=== PATIENT | male | born 1955 | race Caucasian/White ===

== ENCOUNTER 2016-09-12 13:29 | Emergency (ER) | payer OTHER ==
--- NOTE | 2016-09-12 13:42 | PDOC ---
History of Present Illness - General Chief Complaint: Seizure Stated Complaint: SIZURE Time Seen by Provider: 09/12/16 13:42 History Source: Patient Exam Limitations: No Limitations - History of Present Illness Initial Comments: 09/12/16 13:42 CHIEF COMPLAINT: Seizure PCP: Dr. Montes HISTORY OF PRESENT ILLNESS: Patient is a 61 [id number] was brought in via EMS after he developed seizure. A/c to the patient, he was with a patient, standing in position when he felt weak and started having generalized tonic clonic seizure. Nurse witnessed the seizure and told him he had a GTCS, the duration of seizure is unknown, there was no tongue bite, no urinary or stool incontinence, no fall, no trauma to the head. He felt nauseous after he gained consciouness. Post seizure he denies headache, dizziness, chest pain, sob, cough, palpitation, abdominal pain or vomiting. Patient mentions he was diagnosed and treated for Meningioma in 2006 and since Nov, 2007 he started having seizure. He is on Lamotrigine 500mg Daily and is compliant. He took the medication this morning. The last seizure was several months ago. Patient mentions he had an MRI of brain 3 days ago and there was no re-growth of meningioma. Bowel/Bladder habit normal. Sleep/Appetite normal. Recent Travel: None PAST MEDICAL HISTORY: Meningioma (diagnosed in 2006) s/p surgery; Seizure post brain surgery PAST SURGICAL HISTORY: As mentioned above Social History: Smoking: Denies Alcohol: Denies Drugs: Denies Family History:Unknown Allergies: NKDA Past History - Past Medical History Allergies/Adverse Reactions: Allergies Allergy/AdvReac Type Severity Reaction Status Date / Time No Known Allergies Allergy Verified 09/12/16 13:56 Review of Systems - Review of Systems Able to Perform ROS?: Yes Comments:: 09/12/16 15:30 CONSTITUTIONAL:~ Absent: fever, chills, diaphoresis, generalized weakness, malaise, loss of appetite HEENT:~ Absent: rhinorrhea, nasal congestion, throat pain, throat swelling, difficulty swallowing, mouth swelling, ear pain, eye pain, visual Changes CARDIOVASCULAR:~ Absent: chest pain, syncope, palpitations, irregular heart rate, lightheadedness , peripheral edema RESPIRATORY:~ Absent: cough, shortness of breath, dyspnea with exertion, orthopnea, wheezing, stridor, hemoptysis GASTROINTESTINAL: Absent: abdominal pain, abdominal distension, nausea, vomiting, diarrhea, constipation, melena, hematochezia GENITOURINARY:~ Absent: dysuria, frequency, urgency, hesitancy, hematuria, flank pain, genital pain MUSCULOSKELETAL:~ Absent: myalgia, arthralgia, joint swelling SKIN:~ Absent: rash, itching, pallor HEMATOLOGIC/IMMUNOLOGIC:~ Absent: easy bleeding, easy bruising, lymphadenopathy, frequent infections ENDOCRINE: Absent: unexplained weight gain, unexplained weight loss, heat intolerance, cold intolerance NEUROLOGIC: Present: seizure Absent: headache, focal weakness or paresthesias, dizziness, unsteady gait, mental status changes, bladder or bowel incontinence PSYCHIATRIC:~ Absent: anxiety, depression, suicidal or homicidal ideation, hallucinations. Is the patient limited Honduran proficient: No *Physical Exam - Physical Exam Comments: 09/12/16 15:31 PE: GENERAL: Awake, alert, and fully oriented, in no acute distress HEAD: No signs of trauma, linear abrasion due to scratch from glasses, surgical scar brandie in the right parietal area. EYES: PERRLA, EOMI, sclera anicteric, conjunctiva clear ENT: Auricles normal inspection, hearing grossly normal, nares patent, oropharynx clear without exudates. Moist mucosa NECK: Normal ROM, supple, no lymphadenopathy, JVD, or masses LUNGS: Breath sounds equal, clear to auscultation bilaterally. No wheezes, and no crackles.. HEART: Regular rate and rhythm, normal S1 and S2, no murmurs, rubs or gallops ABDOMEN: Soft, nontender, normoactive bowel sounds. No guarding, no rebound. No masses EXTREMITIES: Normal range of motion, no edema. No clubbing or cyanosis. No cords, erythema, or tenderness NEUROLOGICAL: Cranial nerves II through XII grossly intact. Normal speech, normal gait SKIN: Warm, Dry, normal turgor, no rashes or lesions noted. ED Treatment Course - LABORATORY CBC & Chemistry Diagram: 09/12/16 15:00 09/12/16 15:00 Medical Decision Making - Medical Decision Making 09/12/16 14:20 Patient seen and examined at bed side. Vitals noted, unremarkable. Patient looks comfortable. No complaints. No seizure activity on arrival or en route. Was given Zofran en route Will order routine labs, UA No medication given at this time. 09/12/16 14:[address] Montes over the phone. As per his recommendation, will call Dr. De La Fuente Called placed to Dr. De La Fuente -cell no) patients neurologist at [facility]. As per his recommendations, patient was given Lamotrigine 200mg PO stat and get the Lamotrigine level. 09/12/16 16:23 Labs noted, WNL. Clinical Impression: Seizure unknown etiology Patient has been compliant with the medication. Spoke with Dr. Montes and the patient, will discharge him. at bedside. Patient has been advised to follow up with Dr. Montes and Dr. De La Fuente as soon as possible and to return to the Emergency Department if any NEW symptoms develop. Illness, Investigation and Plan of care explained to the patient. He verbalized understanding. Case seen and discussed with Dr. Carlson. *DC/Admit/Observation/Transfer Diagnosis at time of Disposition: Seizure - Discharge Dispostion Disposition: HOME Condition at time of disposition: Guarded Admit: No - Referrals Referrals: Pascual Ballesteros MD [Primary Care Provider] - - Patient Instructions Printed Discharge Instructions: Seizure Disorder -- Adult Additional Instructions: Your blood work shows marginal elevation of WBC count, 11.2, rest blood work is unremarkable. Lamotrigine level is pending. If you would like to know the level , please call the Emergency Department. I spoke with Dr. Montes and Dr. De La Fuente and they are well aware of the plan to discharge you. Please make sure you make an appointment with both of the doctors as soon as possible. Return to the Emergency Department if you develop seizure or if any NEW symptoms develop.
[2016-09-12 14:17] VITALS: BP 120/71; PULSE 82; TEMP 97.2; BMI 22.4
--- NOTE | 2016-09-12 14:46 | PDOC ---
Attending Attestation - Resident Resident Name: Octavia Michael - ED Attending Attestation I have performed the following: I have examined & evaluated the patient, The case was reviewed & discussed with the resident, I agree w/resident's findings & plan, Exceptions are as noted - HPI HPI: 09/12/16 14:44 Agree with the resident's HPI as documented in the electronic medical record. - Physicial Exam PE: 09/12/16 14:44 Agree with the resident's physical examination as documented in the electronic medical record. - Medical Decision Making 09/12/16 14:44 61-year-old male with history of meningioma status post resection in 2017 and subsequent seizure disorderon limitpresents to the emergency department following a witnessed generalized tonic-clonic seizure just prior to arrival with tongue biting. There was no loss of urinary or fecal continence and no trauma to the head or other areas of his body. Differential diagnosis includes but is not limited to: Subtherapeutic AED level, electrolyte abnormality, breakthrough seizure, toxic/metabolic derangement. Plan: 1. Labs 2. Urine 3. Observe and reevaluate
[2016-09-12 15:15] LABS: BASOPHIL 0.4 % (0-2.0); EOSINOPHIL 0.1 % (0-4.5); MCH 31.3 pg (25.7-33.7); MCHC 33.6 g/dl (32.0-35.9); MEAN CELL VOLUME 93.2 fl (80-96); NEUTROPHILS 84.5 % (42.8-82.8); PLATELET COUNT 194 K/MM3 (134-434); RDW 13.3 % (11.9-15.9); WHITE BLOOD COUNT 11.2 K/mm3 (4.0-10.0)
[2016-09-12 15:21] LABS: URINE APPEARANCE CLEAR; URINE BILIRUBIN NEGATIVE (NEGATIVE); URINE BLOOD NEGATIVE (NEGATIVE); URINE COLOR YELLOW; URINE GLUCOSE (UA) NEGATIVE (NEGATIVE); URINE KETONE NEGATIVE (NEGATIVE); URINE LEUK ESTERASE NEGATIVE (NEGATIVE); URINE NITRITE NEGATIVE (NEGATIVE); URINE UROBILINOGEN NEGATIVE E.U./dl (0.2-1.0)
[2016-09-12 15:29] LABS: INR 1.14 (0.82-1.09); PROTHROMBIN TIME (PATIENT) 12.6 SEC (9.98-11.88)
[2016-09-12 15:36] LABS: ALBUMIN 3.9 g/dl (3.4-5.0); ALK PHOS 79 U/L (45-117); ANION GAP 12 (8-16); BILIRUBIN,TOTAL 0.2 mg/dL (0.2-1.0); CALCIUM 8.3 mg/dL (8.5-10.1); CO2 26 mmol/L (21-32); GLUCOSE,RANDOM 122 mg/dL (74-106); SGOT/AST 21 U/L (15-37); SGPT/ALT 34 U/L (12-78); TOT PROT 6.5 g/dl (6.4-8.2)
[2016-09-12 15:40] LABS: URINE PROTEIN 1+ (NEGATIVE)
[2016-09-12 15:54] LABS: URINE HYALINE CAST 26 /lpf; URINE MUCUS RARE; URINE RBC <1 /hpf (0-3); URINE WBC 1 /hpf (3-5)
== END 2016-09-12 16:46 | disposition home or self-care (01) ==
LOC: JER 13:29
DX: G40.909 Epilepsy, unspecified, not intractable, without status epilepticus (principal)
CPT/HCPCS: 36415; 80053; 80175; 81003; 81015; 85025; 85610; 99283-25

== ENCOUNTER 2017-06-21 07:26 | Day surgery (SDC) | payer OTHER ==
[2017-06-19 18:02] VITALS: BMI 27.4
[2017-06-21] MEDS ORDERED: PROPOFOL 20 ML ONE ×2 (08:23)
[2017-06-21] MEDS ORDERED: LIDOCAINE HCL/PF 2% SDV 5ML VIAL ONE (08:23)
[2017-06-21 09:04] VITALS: TEMP 97.3
[2017-06-21 09:45] VITALS: BP 131/78; PULSE 58
--- NOTE | 2017-06-22 13:24 | PATH ---
Surgical Pathology Report Patient Name: PELON BELL [facility]. Rec. #: [id number] /Age/Gender: 1955 (Age: 62) / M Account: [id number] Location: Taken: 06/21/2017 Received: 06/21/2017 Reported: 06/22/2017 Physicians: Anibal Welch M.D. Specimen(s) Received A: POLYP HEPATIC FLEXURE B: BX RECTUM POLYP Clinical History Preoperative diagnosis: Screening Postoperative diagnosis: Diverticulosis, colon polyps Final Diagnosis A. COLON, HEPATIC FLEXURE, BIOPSY: COLONIC MUCOSA WITH NO PATHOLOGIC CHANGES. NO ACTIVE COLITIS, ARCHITECTURAL DISTORTION, GRANULOMATA, OR DYSPLASIA IDENTIFIED. NO MICROSCOPIC COLITIS IDENTIFIED (NO LYMPHOCYTIC OR COLLAGENOUS COLITIS IDENTIFIED). B. COLON, RECTUM, POLYPECTOMY: TUBULAR ADENOMA. Comment: Recommend correlation with clinical findings and follow up as clinically indicated. Electronically Signed Hudson Galicia M.D. Gross Description A. Received in formalin, labeled "polyp hepatic flexure" are 2 ramon, irregular portions of soft tissue measuring 0.2 and 0.3 cm. in greatest dimension. The specimens are submitted in toto in one cassette. B. Received in formalin, labeled "biopsy rectum polyp" are 2 ramon, irregular portions of soft tissue measuring 0.2 and 0.4 cm. in greatest dimension. The specimens are submitted in toto in one cassette. 06/21/201706/21/2017
== END 2017-06-21 09:46 | disposition home or self-care (01) ==
LOC: FASU-ENDO 07:26
PROVIDERS: ATTEND Internal Medicine Gastroenterology
PROC: 0DBP8ZX Excision of Rectum, Via Natural or Artificial Opening Endoscopic, Diagnostic (ICD-10-PCS; 2017-06-21)
PROC: 0DBL8ZX Excision of Transverse Colon, Via Natural or Artificial Opening Endoscopic, Diagnostic (ICD-10-PCS; principal; 2017-06-21 08:00)
DX: Z12.11 Encounter for screening for malignant neoplasm of colon (principal); D12.8 Benign neoplasm of rectum; D12.2 Benign neoplasm of ascending colon; K57.30 Diverticulosis of large intestine without perforation or abscess without bleeding
CPT/HCPCS: 88305-TC

== ENCOUNTER 2018-12-27 16:25 | Emergency (ER) | payer OTHER ==
[2018-12-27] MEDS ORDERED: ASPIRIN 81 MG CHEWABLE TABLETS PO ONE (17:01)
--- NOTE | 2018-12-27 17:05 | PDOC ---
History of Present Illness - General Chief Complaint: Palpitations Stated Complaint: PALPITATIONS Time Seen by Provider: 12/27/18 16:51 - History of Present Illness Initial Comments: 12/27/18 18:13 63m with pmh of seizures and SVT, scheduled for ablation yesterday that was cancelled due to MD emergency, presents to the ED for palpitations. Sent by Dr. Oliver for evaluation. He denies chest pain, difficulty breathing, n/v/d, headache, back pain, dizziness. Patient had stopped taking is Toprol for the past few days before his expected surgery. Resumed it this morning. Has used a Holter monitor many times in the past, last time chris-tiera was briefly seen. 12/27/18 19:23 Past History - Past Medical History Allergies/Adverse Reactions: Allergies Allergy/AdvReac Type Severity Reaction Status Date / Time No Known Allergies Allergy Verified 06/19/17 17:58 Home Medications: Ambulatory Orders Lamotrigine [Lamotrigine Odt] 400 mg PO BID 06/19/17 Metoprolol Succinate [Toprol Xl] 50 mg PO BID 12/27/18 Rosuvastatin Calcium [Crestor] 5 mg PO DAILY 12/27/18 Anemia: No Asthma: No Cancer: No (meningioma 2006) Cardiac Disorders: No CVA: No COPD: No CHF: No Dementia: No GI Disorders: No Disorders: No HTN: No Hypercholesterolemia: No Liver Disease: No Seizures: Yes (LAST SEIZURE 3 YEARS AGO) Thyroid Disease: No - Surgical History Abdominal Surgery: No Appendectomy: No Cardiac Surgery: No Cholecystectomy: No Lung Surgery: No Neurologic Surgery: Yes (2006 REMOVAL OF MENINGIOMA) Orthopedic Surgery: No - Suicide/Smoking/Psychosocial Hx Smoking History: Never smoked Have you smoked in the past 12 months: No Hx Alcohol Use: No Drug/Substance Use Hx: No Substance Use Type: None Hx Substance Use Treatment: No Cardiac Specific PMH - Complaint Specific PMHX Pacemaker: No Review of Systems - Review of Systems Able to Perform ROS?: Yes Is the patient limited Gambian proficient: No Constitutional: No: Symptoms Reported HEENTM: No: Symptoms Reported Respiratory: No: Symptoms reported Cardiac (ROS): Yes: See HPI ABD/GI: No: Symptoms Reported : No: Symptoms Reported Musculoskeletal: No: Symptoms Reported Integumentary: No: Symptoms Reported Neurological: No: Symptoms reported *Physical Exam - Vital Signs Last Vital Signs Temp Pulse Resp BP Pulse Ox 98.3 F 60 16 125/80 100 12/27/18 16:50 12/27/18 18:44 12/27/18 18:44 12/27/18 18:44 12/27/18 18:44 - Physical Exam General Appearance: Yes: Nourished, Appropriately Dressed. No: Apparent Distress HEENT: positive: EOMI, KIM, Normal ENT Inspection Respiratory/Chest: positive: Lungs Clear, Normal Breath Sounds. negative: Chest Tender, Respiratory Distress Cardiovascular: positive: Tachycardia, Irregularly Irregular Gastrointestinal/Abdominal: positive: Normal Bowel Sounds, Flat, Soft Rectal Exam: positive: normal rectal tone Musculoskeletal: positive: Normal Inspection. negative: CVA Tenderness Extremity: positive: Normal Capillary Refill, Normal Inspection, Normal Range of Motion Integumentary: positive: Normal Color, Dry, Warm Neurologic: positive: Fully Oriented, Alert, Normal Mood/Affect, Normal Response , Motor Strength 5/5 ED Treatment Course - LABORATORY CBC & Chemistry Diagram: 12/27/18 17:20 12/27/18 17:20 - ADDITIONAL ORDERS Additional order review: Laboratory Results 12/27/18 12/27/18 12/27/18 18:43 18:25 17:20 PT with INR INR PTT (Actin FS) 34.6 Sodium 138 Potassium 4.6 Chloride 103 Carbon Dioxide 31 Anion Gap 4 L BUN 18.6 H Creatinine 1.0 Est GFR (CKD-EPI)AfAm 92.42 Est GFR (CKD-EPI)NonAf 79.75 Random Glucose 97 Calcium 9.1 Magnesium 2.4 Total Bilirubin 0.6 AST 20 ALT 41 Alkaline Phosphatase 78 Creatine Kinase 170 Creatine Kinase Index 0.7 CK-MB (CK-2) 1.3 Troponin I < 0.02 Total Protein 7.4 Albumin 4.3 Stool Occult Blood Negative 12/27/18 17:20 PT with INR 12.60 INR 1.07 PTT (Actin FS) Sodium Potassium Chloride Carbon Dioxide Anion Gap BUN Creatinine Est GFR (CKD-EPI)AfAm Est GFR (CKD-EPI)NonAf Random Glucose Calcium Magnesium Total Bilirubin AST ALT Alkaline Phosphatase Creatine Kinase Creatine Kinase Index CK-MB (CK-2) Troponin I Total Protein Albumin Stool Occult Blood 12/27/18 17:20 RBC 4.77 MCV 94.1 MCHC 33.6 RDW 13.5 MPV 7.9 Neutrophils % 68.3 Lymphocytes % 23.3 D Monocytes % 7.1 Eosinophils % 0.8 D Basophils % 0.5 - RADIOLOGY Radiology Studies Ordered: Category Date Time Status CHEST X-RAY PORTABLE* [RAD] Stat Radiology 12/27/18 17:02 Completed - Medications Given in the ED: ED Medications Discontinued Medications Generic Name Dose Route Start Last Admin Trade Name Jaycobq PRN Reason Stop Dose Admin Apixaban 5 mg 12/27/18 18:27 12/27/18 18:43 Eliquis - PO 12/27/18 18:28 5 mg NOW ONE Administration Aspirin 162 mg 12/27/18 17:01 12/27/18 17:35 Asa - PO 12/27/18 17:02 Not Given ONCE ONE Aspirin 325 mg 12/27/18 17:22 12/27/18 17:25 Asa - PO 12/27/18 17:23 325 mg ONCE ONE Administration Diltiazem HCl 10 mg 12/27/18 18:12 12/27/18 18:18 Cardizem Injection - IVPUSH 12/27/18 18:13 10 mg ONCE ONE Administration Metoprolol Tartrate 5 mg 12/27/18 17:17 12/27/18 17:27 Lopressor Injection - IVPUSH 12/27/18 17:18 5 mg ONCE ONE Administration Metoprolol Tartrate 5 mg 12/27/18 17:42 12/27/18 17:52 Lopressor Injection - IVPUSH 12/27/18 17:43 5 mg ONCE ONE Administration Medical Decision Making - Medical Decision Making 12/27/18 19:23 63m with known svt presenting with palpitation. EKG and cardio workup with trops. EK:1 flutter. Negative troponin. Rest of the labs are WNL. Dr. Espinoza at bedside. Will work on transferring the patient to [facility]. Starting the patient on 10mg of metoprolol, Cardizem and Eliquis before being transfered. Patient reverted back to Sinus rhythm, specifically, Sinus bradycardia which is his baseline. EMS coming to [facility] patient at 7:30pm *DC/Admit/Observation/Transfer Diagnosis at time of Disposition: Palpitations, Atrial flutter by electrocardiogram - Discharge Dispostion Disposition: TRANSFER ACUTE CARE/OTHER HOSP Condition at time of disposition: Guarded - Referrals Referrals: Pascual Ballesteros MD [Staff Physician] - Fede Oliver MD [Staff Physician] - - Patient Instructions - Post Discharge Activity - Transfer to Acute Care Facility Receiving Facility: [facility].
[2018-12-27 17:07] VITALS: BMI 27.6
[2018-12-27] MEDS ORDERED: METOPROLOL TARTRATE 5 MG/5 ML VIAL IVPUSH ONE ×2 (17:17→17:42)
[2018-12-27] MEDS ORDERED: METOPROLOL TARTRATE 5 MG/5 ML VIAL ONE ×2 (17:21→17:43)
[2018-12-27] MEDS ORDERED: ASPIRIN 325 MG TABLET PO ONE (17:22)
[2018-12-27] MEDS ORDERED: ASPIRIN 325 MG TABLET ONE (17:23)
[2018-12-27 17:32] LABS: BASO % 0.5 % (0-2.0); EOS % 0.8 % (0-4.5); HEMATOCRIT 44.9 % (35.4-49); HEMOGLOBIN 15.1 GM/dL (11.7-16.9); LYMPH % 23.3 % (8-40); MCH 31.6 pg (25.7-33.7); MCHC 33.6 g/dl (32.0-35.9); MEAN CELL VOLUME 94.1 fl (80-96); MEAN PLT VOLUME 7.9 fl (7.5-11.1); MONO % 7.1 % (3.8-10.2); NEUT % 68.3 % (42.8-82.8); PLATELET COUNT 202 K/MM3 (134-434); RBC 4.77 M/mm3 (4.00-5.60); RDW 13.5 % (11.9-15.9); WHITE BLOOD COUNT 6.2 K/mm3 (4.0-10.0)
[2018-12-27 17:43] LABS: INR 1.07 (0.83-1.09); PROTHROMBIN TIME (PATIENT) 12.6 SEC (9.7-13.0)
--- NOTE | 2018-12-27 17:48 | PDOC ---
Documentation entered by Diogo Davalos SCRIBE, acting as scribe for Praneeth Liriano MD. Praneeth Liriano MD: This documentation has been prepared by the Anoop guo Daniel, SCRIBE, under my direction and personally reviewed by me in its entirety. I confirm that the documentation accurately reflects all work, treatment, procedures, and medical decision making performed by me. Attending Attestation - Resident Resident Name: RodriguezAlvarez - ED Attending Attestation I have performed the following: I have examined & evaluated the patient, The case was reviewed & discussed with the resident, I agree w/resident's findings & plan, Exceptions are as noted - HPI HPI: 12/27/18 17:26 63yo M physician hx recent tachyarrhythmia (flutter vs SVT per Dr. Oliver), HTN , meningioma s/p resection c/b seizures presents to the ED with palpitations, SOB, and lightheadedness. Pt was brought in by Dr. Olivre for rate control. Pt was due for ablation of tachyarrhythmia yesterday but it was cancelled by the EP. Pt's rate was previously controlled with a beta yumi, however it was stopped 6 days ago in preparation for the ablation. As such, his HR has been elevated over the last few days. He denies chest pain, diaphoresis, N/V/D, headache, focal weakness/numbness, abd pain. - Physicial Exam PE: 12/27/18 17:30 GENERAL: Awake, alert, and fully oriented, in no acute distress. Pleasant. EYES: PERRLA, EOMI, sclera anicteric, conjunctiva clear ENT: Oropharynx clear without exudates. Moist mucosa NECK: Normal ROM, supple, no lymphadenopathy, JVD, or masses LUNGS: Breath sounds equal, clear to auscultation bilaterally. No wheezes, and no crackles HEART: Tachycardic to 130, regular, normal S1 and S2, no murmurs, rubs or gallops ABDOMEN: Soft, nontender, normoactive bowel sounds. No guarding, no rebound. No masses EXTREMITIES: Normal range of motion, no edema. No cords, erythema, or tenderness NEUROLOGICAL: Normal speech, cranial nerves intact, equal strength and sensation b/l, normal gait SKIN: Warm, Dry, normal turgor, no rashes or lesions noted. - Medical Decision Making 12/27/18 16:43 63yo M hx tachyarrhythmia presents to the ED with palpitations, lightheadness, and SOB EKG concerning with REJI, but no previous EKGs to compare. EKG reviewed immediately with Dr. Oliver who was already at the bedside Does not think this is STEMI EKG and recommends rate control and repeat EKG EKG changes may be rate related Pt is well appearing with no resp distress, no CP Will rate control with metoprolol 5mg IV Q10 mins pending BP 12/27/18 17:46 HR down to 120 with 5mg metoprolol mg IV Getting second round at this time Dr. Oliver back at the bedside labs pending 12/27/18 18:22 HR still in 120s after 10mg metoprolol Dr. Oliver recommends diltiazem 10mg IV Dr. Oliver has spoken with EP team at [facility], they accept pt for transfer They request eliquis 5mg which has been ordered Dr. Oliver has consented the patient 12/27/18 18:46 Pt now in sinus rhythm EKG is NSR with no REJI or STD Pt awaiting transportation to [facility] Heart Score/ECG Review #1 12/27/18 17:33 Twelve-lead EKG was performed and reviewed by me. Atrial flutter with 2-1 conduction as well as right bundle branch block. ST elevation in aVR and V1 with reciprocal ST depressions in 2, 3, aVF and V3 to V6.
[2018-12-27 17:58] LABS: ALBUMIN 4.3 g/dl (3.4-5.0); ALK PHOS 78 U/L (45-117); ANION GAP 4 MMOL/L (8-16); BILIRUBIN,TOTAL 0.6 mg/dL (0.2-1); BLOOD UREA NITROGEN 18.6 mg/dL (7-18); CALCIUM 9.1 mg/dL (8.5-10.1); CHLORIDE 103 mmol/L (98-107); CO2 31 mmol/L (21-32); GLUCOSE,RANDOM 97 mg/dL (74-106); MAGNESIUM 2.4 mg/dL (1.8-2.4); POTASSIUM 4.6 mmol/L (3.5-5.1); SGOT/AST 20 U/L (15-37); SGPT/ALT 41 U/L (13-61); SODIUM 138 mmol/L (136-145); TOT PROT 7.4 g/dl (6.4-8.2)
[2018-12-27] MEDS ORDERED: HEPARIN NA (PORCINE) 5,000 UNITS/ML 1ML VIAL IVPUSH PRN ×2 (18:10)
[2018-12-27] MEDS ORDERED: HEPARIN INFUSION - 25,000 UNITS/500 ML INFUS.BAG IVPB SCH (18:15)
[2018-12-27] MEDS: dilTIAZem HCL 50 MG/10 ML - 10 ML VIAL IVPUSH ONE ×2 (18:18→18:30)
[2018-12-27] MEDS ORDERED: HEPARIN NA (PORCINE) 5,000 UNITS/ML 1ML VIAL ONE (18:20)
[2018-12-27] MEDS ORDERED: HEPARIN INFUSION - 25,000 UNITS/500 ML INFUS.BAG IVPB ONE (18:21)
[2018-12-27] MEDS ORDERED: dilTIAZem HCL 125 MG/25 ML - 25 ML VIAL ONE (18:21)
[2018-12-27] MEDS ORDERED: APIXABAN 5 MG TABLET PO ONE ×2 (18:27→18:40)
--- NOTE | 2018-12-27 20:31 | CONS ---
DATE OF CONSULTATION: 12/27/2018 DATE OF DICTATION: 12/27/2018 REQUESTING PHYSICIAN: Praneeth Liriano M.D. 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 Patient was diagnosed to have a supraventricular tachycardia, most likely atrial flutter and possibly atrial fibrillation. His symptoms started approximately 2 months ago, and initially controlled with oral beta blockers, and he was evaluated by an semiconductor wafers marker at [facility] and scheduled to undergo EP study and radiofrequency ablation on December 26, 2018. Due to personal emergency related to the semiconductor wafers marker, the procedure was delayed to January 11, 2019. He had been taken off beta blockers in anticipation of the ablation and started experiencing repeated episodes of palpitations lasting several hours, and recently was experiencing them practically every day. Last evening he was woken up from sleep with prolonged episode, again accompanied by mild shortness of breath, lightheadedness, and dizziness. While at work, he developed palpitations and decided to come to my office, was found to be in supraventricular tachycardia with a rate of approximately 140 beats per minute. He was brought to the hospital and ECG revealed an atrial flutter with 2:1 AV conduction, and he was hypertensive with a blood pressure of 170/112 mmHg. He was initially given IV metoprolol tartrate, a total of 10 mg, but remained in atrial flutter with slight decrease in heart rate and also blood pressure did improve, but he did remain mildly hypertensive. In view of recurring episodes of atrial flutter, [facility] was contacted for possible transfer and early EP evaluation. In view of persistent arrhythmias, he received 10 mg of IV diltiazem and over 10 minutes developed a slow ventricular response, and then within half an hour converted to sinus rhythm. There is no history of chest pain or discomfort. No history of diabetes mellitus. No history of rheumatic fever as a child. PAST HISTORY: As mentioned in the history of present illness. History of a benign cerebral meningioma resected in 2006. History of seizure disorder following the resection of meningioma. SURGICAL HISTORY: Status post tonsillectomy. SOCIAL HISTORY: Dentist by profession, , 2 sons and a daughter who are healthy. Never smoked. Used to have a social drink which he stopped once he developed seizures. ALLERGIES: None reported. MEDICATION: Prior to admission, he was on: 1. Metoprolol succinate 50 mg p.o. b.i.d. 2. Lamictal 400 mg p.o. b.i.d. 3. Crestor 5 mg p.o. daily. 4. Aspirin 81 mg, which he had discontinued recently. REVIEW OF SYSTEMS: Constitutional: No history of chills, fever, or night sweats. No history of weakness or lethargy. No history of unintentional weight loss. HEENT: No history of headaches, diplopia, blurred vision. No history of epistaxis, hoarseness, tinnitus or deafness. Cardiovascular: See history of present illness. Respiratory: No history of cough, expectoration, or hemoptysis. No history of tuberculosis. Gastrointestinal: No history of nausea, vomiting, melena, or hematemesis. No history of unintentional weight loss. No history of abdominal pain or discomfort. No history of early satiety. No history of change in bowel habits. Endocrine: No history of polyuria, polydipsia. No history of intolerance to cold or warm weather. No known history of endocrine disorder. Genitourinary: No history of dysuria, frequency, or urgency. Occasional nocturia. No history of hematuria. Musculoskeletal: No history of myalgias or arthralgias. Neurological: See history of present illness. No history of recent seizures. No history of focal weakness. Hematological/Lymphatics: No history of ecchymosis, anemia, or bleeding. No history of lymphadenopathy. PHYSICAL EXAMINATION: General: A 63-year-old gentleman at time of examination slightly agitated, no pallor, cyanosis, clubbing or jaundice. Vital signs: Blood pressure initially was 170/112. Blood pressure after receiving IV metoprolol came down to 144/105 mmHg. Pulse was 128 beats per minute and regular. Respirations were 18 per minute. Oxygen saturation was 100% on 2 L of oxygen. Neck: Supple. No jugulovenous distention. Carotids were 2+, upstrokes were normal, no bruits were heard, and no thyromegaly was present. Heart: No heaves or thrills. PMI was in the 5th intercostal space. S1 was normal. S2 was split. Nonejection systolic click was heard along the left sternal border and apex. No murmur or gallops were appreciated. No rubs were heard. Lungs: Clear on auscultation. Abdomen: Soft, protuberant and nontender. No hepatosplenomegaly or palpable masses were felt. Bowel sounds were present. Extremities: No calf tenderness or dependent edema, pulses were equal. ECG: Initial ECG revealed supraventricular tachycardia, most likely atrial flutter with 2:1 AV conduction, there were nonspecific ST and T wave abnormalities. Previous ECG was not available. Repeat ECG after conversion to sinus rhythm reveals sinus bradycardia, probable intraatrial conduction abnormality, normal ST and T waves. LABORATORY DATA: CBC: WBC 6200, hemoglobin 15.1 g/dL, platelet count 202,000, normal differential. Chemistry: Sodium 138, potassium 4.6, chloride 103, CO2 of 31 mmol/L, BUN 18.6, creatinine 1.0 mg/dL. Calcium 9.1 mg/dL, magnesium 2.4 mg/dL. Normal liver function tests. CK was 170, troponin was less than 0.02. INR is 1.07. PTT was 34.6 seconds. X-ray chest: Impression: No acute chest pathology. IMPRESSION: 1. Recurring episodes of atrial flutter with rapid ventricular response (symptomatic). 2. Hypertension, poorly controlled. 3. Hypercholesterolemia. 4. findings suggestive of mitral valve prolapse. 5. Seizure disorder, currently in remission. RECOMMENDATION: 1. Treatment as outlined. 2. Arrangements have been made for transfer to [facility] for early or urgent EP evaluation and possible radiofrequency ablation. 3. Strict control of blood pressure. 4. Anticoagulation and recommendation from [facility] was to place him on Eliquis 5 mg. 5. Further workup needs to be undertaken at [facility]. Prognosis critical. Bedside intensive care for 3 hours and 50 minutes. PIERRE CASTRO M.D. [id number]
[2018-12-27 23:01] VITALS: BP 129/104; PULSE 56; TEMP 98.4
--- NOTE | 2018-12-28 13:39 | EKG ---
Test Reason : Blood Pressure : / mmHG Vent. Rate : 057 BPM Atrial Rate : 057 BPM P-R Int : 164 ms QRS Dur : 082 ms QT Int : 406 ms P-R-T Axes : 012 002 022 degrees QTc Int : 395 ms SINUS BRADYCARDIA CANNOT RULE OUT SEPTAL INFARCT , AGE UNDETERMINED ABNORMAL ECG POOR DATA QUALITY, INTERPRETATION MAY BE ADVERSELY AFFECTED Confirmed by JULIENNE PATEL MD ([id number]) on 12/28/2018 1:38:53 PM Referred By: Confirmed By:JULIENNE PATEL MD
--- NOTE | 2018-12-28 13:44 | EKG ---
Test Reason : Blood Pressure : / mmHG Vent. Rate : 130 BPM Atrial Rate : 260 BPM P-R Int : 000 ms QRS Dur : 154 ms QT Int : 390 ms P-R-T Axes : 000 -01 -70 degrees QTc Int : 573 ms ATRIAL FLUTTER RIGHT BUNDLE BRANCH BLOCK T WAVE ABNORMALITY, CONSIDER INFEROLATERAL ISCHEMIA ABNORMAL ECG Confirmed by JULIENNE PATEL MD ([id number]) on 12/28/2018 1:43:37 PM Referred By: Confirmed By:JULIENNE PATEL MD
== END 2018-12-27 20:10 | disposition short-term general hospital (02) ==
LOC: JER 16:25
PROC: 3E033GC Introduction of Other Therapeutic Substance into Peripheral Vein, Percutaneous Approach (ICD-10-PCS; principal; 2018-12-27)
PROC: 3E033GC Introduction of Other Therapeutic Substance into Peripheral Vein, Percutaneous Approach (ICD-10-PCS; 2018-12-27)
PROC: 3E033GC Introduction of Other Therapeutic Substance into Peripheral Vein, Percutaneous Approach (ICD-10-PCS; 2018-12-27)
DX: I48.92 Unspecified atrial flutter (principal); R00.2 Palpitations; I47.1 Supraventricular tachycardia; Z86.69 Personal history of other diseases of the nervous system and sense organs
CPT/HCPCS: 36415; 71045-TC-FY; 80053; 82272; 82550; 82553; 83735; 84484; 85025; 85610; 85730; 93005; 93010; 99285-25